=== PATIENT | female | born 1950 | race Caucasian/White ===

== ENCOUNTER 2019-02-21 19:26 | Emergency (ER) | payer MEDICARE ==
--- NOTE | 2019-02-21 20:16 | RAD ---
EXAM: Chest 2 views: HISTORY: Right neck and shoulder pain COMPARISON: None. FINDINGS: There is a normal-sized cardiomediastinal silhouette. There is no evidence of consolidation, mass, or pleural effusion. The bones are unremarkable. IMPRESSION: No evidence of acute cardiopulmonary disease
[2019-02-21 20:56] LABS: Band 2 % (5-11); Eosinophils 4 % (0-10); Hemoglobin 13.5 g/dL (12.0-16.0); Lymphocytes 28 % (21-51); MDiff Complete? YES; Mean Corpuscular HGB CONC 31.8 g/dL (32.0-36.0); Mean Corpuscular Hemoglobin 33.3 pg (27.0-31.0); Mean Corpuscular Volume 104.7 fL (78.0-98.0); Mean Platelet Volume 6.4 fL (7.4-10.4); Monocytes 4 % (0-10); Neutrophil 62 % (42-75); Platelet Count 423 thou/uL (130-400); Platelet Morphology Comment Appears Increased; RBC Distribution Width 12.4 % (11.5-14.5); RBC Morphology Normal; Red Blood Cell (RBC) Count 4.04 mill/uL (4.20-5.40); White Blood Cell (WBC) Count 10.7 thou/uL (4.8-10.8)
[2019-02-21 21:03] LABS: ALT (SGPT) 16 U/L (8-55); AST (SGOT) 18 U/L (5-34); Albumin 4.3 g/dL (3.4-4.8); Alkaline Phosphatase 50 U/L (40-110); Anion Gap 17 mmol/L (10-20); BUN (Urea Nitrogen) 6 mg/dL (9.8-20.1); Bilirubin, Total 0.5 mg/dL (0.2-1.2); CK (CPK) 64 U/L (29-168); Calc. Creatinine Clearance 0 mL/min (70-130); Calcium 9.5 mg/dL (7.8-10.44); Carbon Dioxide 26 mmol/L (23-31); Chloride 99 mmol/L (98-107); Estimated GFR-MDRD Greater than 90; Globulin 2.6 g/dL (2.4-3.5); Glucose 96 mg/dL (80-115); Protein, Total 6.9 g/dL (6.0-8.3); Sodium 138 mmol/L (136-145)
[2019-02-21] MEDS ORDERED: Cyclobenzaprine 10 MG TAB ONE (21:21)
== END 2019-02-21 21:30 | disposition home or self-care (01) ==
LOC: MADERS 19:26
DX: S13.4XXA Sprain of ligaments of cervical spine, initial encounter (principal); F17.210 Nicotine dependence, cigarettes, uncomplicated; X50.9XXA Other and unspecified overexertion or strenuous movements or postures, initial encounter
CPT/HCPCS: 36415; 71046; 80053; 82550; 84484; 85025; 93005

== ENCOUNTER 2019-05-10 11:13 | Emergency (ER) | payer MEDICAID, MEDICARE ==
[2019-05-10] MEDS ORDERED: Adacel (T-DAP) 0.5 ML SYRINGE ONE (11:40)
[2019-05-10] MEDS ORDERED: Acetaminophen 500 MG TAB ONE (11:40)
--- NOTE | 2019-05-10 13:14 | RAD ---
TWO VIEWS RIGHT HIP: COMPARISON: None. HISTORY: Right hi pain after a fall of 3 feet. FINDINGS: Two views right hip show no evidence of acute fracture or dislocation. No degenerative changes are s een. IMPRESSION: No evidence of acute osseous abnormality. POS: [facility]
--- NOTE | 2019-05-10 13:19 | RAD ---
RADIOGRAPH LEFT HIP 2 VIEWS: DATE: 05/10/2019. HISTORY: A 68-year-old female with acute traumatic left hip pain due to fall. FINDINGS: No dislocation. No fracture identified. Femoral head contour normal. Joint space maintained. No s ubcapital or acetabular osteophytes. Diffuse osteopenia. IMPRESSION: 1. Osteopenia. 2. Otherwise, normal. POS: [facility]
--- NOTE | 2019-05-10 13:21 | RAD ---
RADIOGRAPH LEFT HAND THREE VIEWS: 05/10/2019 HISTORY: A 68-year-old female status post acute hand trauma due to fall. FINDINGS: There is a transversely oriented fracture of the distal radial metaphysis with minimal dorsal angulat ion of the major distal fragment, but otherwise no significant translation. This does not disrupt the radiocarpal joint surface. There is fracture at the mid portion of the ulnar styloid process with mo derate displacement. Very severe DJD at first CMC with chronic, severe subluxation. No fracture of th e hand proper identified. Severe DJD at the fifth DIP joint. Diffuse severe osteopenia. IMPRESSION: 1. Acute, impacted Colles fracture of the distal radial metaphysis. 2. Acute, traumatic, displaced ulnar styloid fracture. 3. Very severe osteoarthrosis of the first carpometacarpal joint. 4. Severe osteoporosis. POS: [facility]
--- NOTE | 2019-05-10 13:28 | RAD ---
RADIOGRAPH LEFT WRIST FOUR VIEWS: 05/10/2019 12:27 p.m. HISTORY: A 68-year-old female with acute traumatic left wrist pain from fall. FINDINGS: Transversely oriented, mildly comminuted fracture of the distal radial metaphysis, with minimal dorsa l angulation of the distal fragment, with slight impaction. No translation in the AP dimension or tra nsverse dimensions regarding major fragments. No involvement of radiocarpal joint surface identified. Truncation of the mid to distal portion of the ulnar styloid process. Small, ill-defined, calcific f ragments distal to it. Very severe DJD, first CMC. Diffuse osteopenia. IMPRESSION: 1. Acute, traumatic, probably impacted, minimally angulated, Colles fracture of the distal radial met aphysis. 2. Ulnar styloid fracture. 3. Very severe osteoarthrosis of the first carpometacarpal joint. 4. Diffuse osteoporosis. POS: [facility]
== END 2019-05-10 13:20 | disposition home or self-care (01) ==
LOC: MADERS 11:13
DX: S52.532A Colles' fracture of left radius, initial encounter for closed fracture (principal); S52.612A Displaced fracture of left ulna styloid process, initial encounter for closed fracture; F17.210 Nicotine dependence, cigarettes, uncomplicated; Z23 Encounter for immunization; W20.8XXA Other cause of strike by thrown, projected or falling object, initial encounter
CPT/HCPCS: 29125; 90471; 90715

== ENCOUNTER 2023-12-28 17:58 | Outpatient (CLI) | payer MEDICARE | END 2023-12-28 17:59 | disposition home or self-care (01) | LOC: MADRAD 17:58 | PROVIDERS: ATTEND Nurse Practitioner Family | DX: R07.9 Chest pain, unspecified (principal); J98.59 Other diseases of mediastinum, not elsewhere classified | CPT/HCPCS: 71046 ==